=== PATIENT | male | born 1950 | race Caucasian/White ===

== ENCOUNTER 2020-06-19 12:52 | Emergency (ER) | payer MEDICARE ==
[~2020-06-19] VITALS: Ht 188 cm; Wt 93.1 kg
[2020-06-19] MEDS ORDERED: HUMA75IN2 SC (13:02)
[2020-06-19] MEDS ORDERED: PRAV10TA3 PO (13:02)
[2020-06-19] MEDS ORDERED: LOSA50TA88 PO (13:02)
[2020-06-19] MEDS ORDERED: ASPI81CH33 PO (13:02)
[2020-06-19] MEDS ORDERED: ASPIRIN 81 MG CHEW TABLET PO ONE (13:30)
[2020-06-19 13:31] LABS: BASO % 0.5 % (0.0-1.0); EOS # 0.5 10^3/uL (0.0-0.5); EOS % 5.8 % (0.0-3.0); HEMATOCRIT 45.9 % (42.0-52.0); HEMOGLOBIN 15.1 g/dl (13.5-17.5); LYMPH # 2.1 10^3/uL (1.5-5.0); LYMPH % 26.6 % (24.0-44.0); MEAN CORPUSCULAR HEMOGLOBIN 30.4 pg (27.0-33.0); MEAN CORPUSCULAR HGB CONC 32.9 g/dl (32.0-36.5); MEAN CORPUSCULAR VOLUME 92.5 fl (80.0-96.0); MONO # 0.8 10^3/uL (0.0-0.8); MONO % 9.5 % (0.0-5.0); NEUTROPHILS # 4.6 10^3/uL (1.5-8.5); NEUTROPHILS % 57.2 % (36.0-66.0); PLATELET COUNT, AUTOMATED 235 10^3/uL (150-450); RED BLOOD COUNT 4.96 10^6/uL (4.30-6.10)
[2020-06-19 13:56] LABS: INR 1.03; PROTHROMBIN TIME 13.7 SECONDS (12.5-14.3)
[2020-06-19 13:57] LABS: PARTIAL THROMBOPLASTIN TIME 33.2 SECONDS (24.2-38.5)
[2020-06-19 14:04] LABS: ALT/SGPT 19 U/L (12-78); BILIRUBIN,DIRECT 0.1 MG/DL (0.0-0.2); BILIRUBIN,TOTAL 0.5 MG/DL (0.2-1.0); BLOOD UREA NITROGEN 17 MG/DL (7-18); CALCIUM LEVEL 9.6 MG/DL (8.8-10.2); CARBON DIOXIDE LEVEL 27 MEQ/L (21-32); CHLORIDE LEVEL 104 MEQ/L (98-107); CK-MB VALUE MASS 2.4 NG/ML (<3.6); CPK CREATINE PHOSPHOKINASE 408 U/L (39-308); CREATININE FOR GFR 1.21 MG/DL (0.70-1.30); GLOMERULAR FILTRATION RATE > 60.0 (>42); GLUCOSE, FASTING 77 MG/DL (70-100); LIPASE 99 U/L (73-393); MB/CK RELATIVE INDEX 0.59 (< OR =4); POTASSIUM SERUM 4.3 MEQ/L (3.5-5.1); SODIUM LEVEL 138 MEQ/L (136-145); TOTAL PROTEIN 8.1 GM/DL (6.4-8.2); TROPONIN I < 0.02 NG/ML (< 0.10)
--- NOTE | 2020-06-19 14:11 | REP ---
INDICATION: CHEST PAIN COMPARISON: None. TECHNIQUE: Portable semi upright AP view FINDINGS: The mediastinum and cardiac silhouette are stable and within normal limits for portable technique. The lung baxter are clear without acute consolidation, effusion, or pneumothorax. Skeletal structures are intact. IMPRESSION: No acute cardiopulmonary process appreciated. <Electronically signed by Clifford Mills > 06/19/20 [id number]
[2020-06-19] MEDS ORDERED: ISOVUE-370 76% 100ML VIAL As Ordered ONE (16:13)
--- NOTE | 2020-06-19 16:56 | REPVR ---
PROCEDURE INFORMATION: Exam: CT Angiography Chest With Contrast Exam date and time: 06/19/2020 4:38 PM Age: 69 years old Clinical indication: Chest pain; Additional info: Chest pain, SOB TECHNIQUE: Imaging protocol: Computed tomographic angiography of the chest with intravenous contrast. 3D rendering (Not supervised by radiologist): MIP and/or 3D reconstructed images were created by the technologist. Radiation optimization: All CT scans at this facility use at least one of these dose optimization techniques: automated exposure control; mA and/or kV adjustment per patient size (includes targeted exams where dose is matched to clinical indication); or iterative reconstruction. Contrast material: ISOVUE 370; Contrast volume: 75 ml; Contrast route: INTRAVENOUS (IV); COMPARISON: CR PORTABLE CHEST X-RAY 06/19/2020 1:52 PM FINDINGS: Pulmonary arteries: Slightly limited evaluation of the distal pulmonary arterial branches due to motion artifact. No filling defect in the main pulmonary arteries or the primary or secondary order pulmonary arterial branches. The main pulmonary arterial trunk is normal in caliber. Aorta: Unremarkable. No aortic aneurysm. No aortic dissection. Lungs: Noncalcified 3 mm nodule in the lingula (series 401, image 112). Adjacent linear scar. Mild subpleural scarring in the right middle lobe. Mild atelectasis in the dependent lower lobes. Calcified pulmonary granulomas. Pleural space: Unremarkable. No pneumothorax. No pleural effusion. Heart: Coronary artery calcifications. Lymph nodes: Calcified mediastinal and hilar lymph nodes are suggestive of prior granulomatous disease. Kidneys and ureters: Partially imaged simple 4.2 cm right renal cortical cyst. No follow-up imaging is recommended. Simple 1.0 cm left renal cortical cyst. No follow-up imaging is recommended. Bones/joints: Degenerative change of the spine. Soft tissues: Unremarkable. IMPRESSION: 1. No evidence of pulmonary embolism. 2. Noncalcified 3 mm nodule in the lingula.For patients at low risk (minimal or absent history of smoking and of other known risk factors), no routine follow-up is indicated. For patients at high risk (history of smoking or of other known risk factors), consider optional CT Chest at 12 months. (Reference: Augustin) 3. Coronary artery calcifications. COMMENTS: Consistent with the [employer]'s Incidental Findings Committee white paper (J Am Jodi Radiol 2018): Any incidental renal lesion less than 1 cm or classified as too small to characterize, or any incidental cystic renal lesion characterized as simple-appearing, is likely benign. No follow-up imaging is recommended for these lesions per consensus recommendations based on imaging criteria. REFERENCES: Augustin Edgar, et al. Guidelines for Management of Incidental Pulmonary Nodules Detected on CT Images: From the [employer]ner Society 2017. Radiology. 2017;284(1):228-243. Electronically signed by: Codi Pham On 06/19/2020 16:56:19 PM
[2020-06-19 19:25] LABS: CPK CREATINE PHOSPHOKINASE 335 U/L (39-308); TROPONIN I < 0.02 NG/ML (< 0.10)
[2020-06-19 19:45] VITALS: BP 150/89
--- NOTE | 2020-06-20 05:43 | ECGEPIP ---
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
--- NOTE | 2020-06-20 05:57 | ECGEPIP ---
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
== END 2020-06-19 20:03 | disposition home or self-care (01) ==
LOC: M ED 12:52
DX: R91.1 Solitary pulmonary nodule (principal); E11.9 Type 2 diabetes mellitus without complications; E78.5 Hyperlipidemia, unspecified; I10 Essential (primary) hypertension; Z79.82 Long term (current) use of aspirin; Z79.4 Long term (current) use of insulin; Z79.899 Other long term (current) drug therapy
CPT/HCPCS: 36415; 71045; 71275; 80048; 80076; 82550; 82553; 83690; 84484; 85025; 85610; 85730; 87486; 87581; 87633; 87798; 93005; 93041; 94760; 99285; Q9967